=== PATIENT | female | born 1940 | race Caucasian/White ===

== ENCOUNTER 2017-02-28 18:28 | Observation (INO) | payer MEDICARE ==
--- NOTE | ~2017-02-28 | HP ---
History And Physical [place] [id number] [facility] [place]. [address] NAME: MEERA OLSON : 38 STATUS : ADM Ilda PAT#: [id number] AGE: 76 ADM/REG DATE : 02/28/17 MR#: [id number] REPORT SERV DATE: 02/28/17 DICTATED BY: NAIN OROSCO DATE: 02/28/17 REPORT STATUS : Draft TRANSCRIBED BY: MODL DATE: 02/28/17 DATE OF ADMISSION: 02/28/2017 CHIEF COMPLAINT: Shortness of breath, cough, and syncopal episode. HISTORY OF PRESENT ILLNESS: The patient is a 76-year-old female. She has a past medical history significant for pacemaker placement, atrial fib, and hypertension. Previous review of medical records also notes a history of congestive heart failure, nonischemic, and possible COPD. The patient presents with a syncopal episode earlier today. She recalls taking her developmental delay child to dance class. She states she was in the car while her daughter was at the dance class. She does not recall any prodrome. States that she woke up 15-20 minutes later, was concerned that she had a syncopal episode and asked the supervisor of guidance and testing to call her an ambulance. She has had no further symptoms since presenting here. She states that she has had previous hospitalizations for syncopal episodes, although I do not note them in the history that I have access to deny it. She does not describe a specific reason for previous syncopal episodes. This episode was not precipitated by chest pains, palpitations, feeling of lightheadedness or any warning that she was going to pass out. She estimates she was out 15-20 minutes and was fully responsive when she woke back up, without other symptoms. She is also complaining of a cough that she has had for the past several weeks. She states she saw her primary care physician, was started on an antibiotic yesterday. Her primary care physician is Dr. Pavon, and her invoice machine operator is Dr. Jacobs. PAST MEDICAL HISTORY: As covered above. PAST SURGICAL HISTORY: She reports none other than pacemaker placement. CURRENT MEDICATIONS: Coreg 12.5 b.i.d., Keflex 500 t.i.d., digoxin 0.125, Lasix 40, Neurontin 300 b.i.d., levothyroxine 75, Prinivil 5, Mevacor 40, potassium 10 and warfarin. ALLERGIES: DEMEROL, PENICILLIN, AND SULFA. FAMILY HISTORY: She reports both parents from cardiovascular disease. SOCIAL HISTORY: Nondrinker, nonsmoker. REVIEW OF SYSTEMS: She is positive for cough. Negative for chest pain or palpitations. Positive for syncope. No GI/ or other neuromusculoskeletal complaints. PHYSICAL EXAMINATION: VITAL SIGNS: BP 124/55, temp 97.8, pulse 62, respirations 18, sat 97%. GENERAL: She is awake, alert, and appropriate. HEENT: Normocephalic, atraumatic. Sclerae nonicteric. NECK: Supple. HEART: Regular rate and rhythm. History And Physical [address] [address] NAME: MEERA OLSON : 39 STATUS : ADM Ilda PAT#: [id number] AGE: 76 ADM/REG DATE : 02/28/17 MR#: [id number] REPORT SERV DATE: 02/28/17 DICTATED BY: NAIN OROSCO DATE: 02/28/17 REPORT STATUS : Draft TRANSCRIBED BY: SOTO DATE: 02/28/17 LUNGS: Show coarse breath sounds throughout. Some mild wheezing. ABDOMEN: Nontender, nondistended. EXTREMITIES: No significant clubbing, cyanosis, or edema. NEUROLOGIC: Exam is grossly nonfocal. LABORATORY DATA: Sodium 137, potassium 3.8, chloride 97, CO2 of 30, BUN and creatinine are 10 and 1.01, glucose 137, BNP 98.5, lactate 1.5. White count of 10.3, H and H 13.8 and 39.6, platelets 317. Flu was negative. Urinalysis is pending. Blood and sputum cultures are pending. Chest x-ray is pending, although no acute infiltrate to my interpretation. EKG shows a paced rhythm. ABG: PH 7.42, CO2 of 39, O2 is 62, bicarb 28, sat 21% FiO2. ASSESSMENT: 1. Syncopal episode. 2. Bronchitis. 3. Incomplete medical history. PLAN: The patient has been admitted. Cardiac enzymes, INR, serial troponins, cardiac monitoring. Treatment of her URI symptoms. Further evaluation pending. AMARI/SOTO Nain Orosco M.D. / [id number] CC: William Gonzalez Jr, MD Richard Forrest Sowell, M.D.
--- NOTE | ~2017-02-28 | DS ---
Discharge Summary [facility] [address] [place]. [address] NAME: MEERA OLSON : 38 STATUS : DIS Ilda PAT#: [id number] AGE: 76 ADM/REG DATE : 02/28/17 MR#: [id number] REPORT SERV DATE: 03/02/17 DICTATED BY: JR. JACOB WILLIAM JOHN DATE: 03/01/17 REPORT STATUS : Draft TRANSCRIBED BY: SOTO DATE: 03/01/17 ADMISSION DATE: 02/28/2017 DISCHARGE DATE: 03/01/2017 DISCHARGE DIAGNOSES: Include: 1. Possible syncope. 2. Hypothyroidism with over replacement. 3. Bronchitis. 4. Atrial fibrillation with permanent pacemaker in place. 5. Hypertension. 6. Dilated cardiomyopathy with ejection fraction of 35%. 7. Diabetes mellitus type 2 with neuropathy. 8. Coagulopathy. OPERATIONS, PROCEDURES, AND TREATMENTS: Include: 1. Chest x-ray done 02/28/2017, which showed pacemaker and AICD in place. 2. Echocardiogram, which showed ejection fraction of 35% to 40% with dilated cardiomyopathy with global hypocontractility, normal right ventricular chamber size and systolic function. No significant valvular regurgitation. There is dilated left atrium. 3. Carotid flow study. Final results are pending at the time of this dictation. 4. Orthostatic vital signs with supine blood pressure 120/57, heart rate 66, sitting blood pressure 126/77, heart rate 70, standing blood pressure 102/57, and heart rate 77. DISCHARGE MEDICATIONS: 1. Coreg 12.5 twice a day. 2. Digoxin 0.125 daily. 3. Lasix 40 mg daily, holding for one day. 4. Neurontin 900 mg twice a day. 5. Synthroid 50 mcg orally daily. 6. Lisinopril 5 mg orally daily. 7. Lovastatin 40 mg orally daily. 8. Potassium 10 mEq orally daily. 9. Coumadin on hold until seen by Dr. Jacobs. 10.Keflex 500 mg orally three times a day for seven days. HOSPITAL COURSE: The patient is a 76-year-old female with a disabled daughter whom she cares for. The patient took her daughter to dance class and apparently was sitting in the car and believes she had a syncopal episode. She awakened after an undetermined amount of time and asked the assistant boys track coach at the dance class to call EMS. She had no chest pain, palpitations, lightheadedness, shaking, loss of bowel or bladder control, etc. When asked if she is sure she did not just fall asleep, she just says she is sure. Initial exam showed a temperature of 97.8, blood pressure 124/55, heart rate 62, and respiratory rate of 18. Exam was otherwise unremarkable. Laboratory was unremarkable. The patient was admitted to the Clinical Decision Unit for observation. The patient had Discharge Summary [address] [address] NAME: MEERA OLSON : 38 STATUS : DIS Ilda PAT#: [id number] AGE: 76 ADM/REG DATE : 02/28/17 MR#: [id number] REPORT SERV DATE: 03/02/17 DICTATED BY: JR. JACOB WILLIAM JOHN DATE: 03/01/17 REPORT STATUS : Draft TRANSCRIBED BY: SOTO DATE: 03/01/17 plan for caring for her disabled daughter, desperately desired discharge home. We did do orthostatics which showed borderline orthostatic blood pressure. We discussed holding her Lasix for one day and to rest for a few minutes between position changes. The patient had an echocardiogram which is detailed above. She also had a carotid flow study, which is pending at this time. The patient's pacemaker was not yet interrogated, however, she strongly desired discharge home. We agreed that we would discharge her if she understood the risks, and she already has followup appointment with Dr. Jacobs on Monday03/06/2017, at which time, she can get her pacemaker interrogated. Regarding the patient's hypothyroidism, her TSH was depressed and free T4 was elevated indicating over replacement of her Synthroid. Her dose of Synthroid was reduced to 50 mcg orally daily. She should have a TSH redrawn in early March. Regarding the patient's coagulopathy, her INR was 4 at discharge. We will continue to hold her Coumadin until she follows up with Dr. Jacobs on Monday as previously scheduled. The patient will be discharged home today 03/01/2017 and will follow up with Dr. Jacobs on Monday as scheduled and Dr. Pavon at next available time. FOLLOWUP ISSUES: 1. Needs pacemaker interrogation. 2. Follow up on carotid flow study, which was completed. However, patient desired discharge before the results were interpreted. 3. Followup TSH in early March after reduction of Synthroid from 75 to 50 mcg daily. For discharge exam and laboratory, please see daily progress note. DIET: As prior. ACTIVITY: Ad williams. This discharge took 38 minutes for patient encounter, coordination of care, and documentation. RISA/SOTO William Jacob Jr, MD / [id number] CC: William Jacob Jr, MD Richard Forrest Sowell, M.D.
[2017-02-28 17:25] LABS: BASOPHILS 0.4 %; BASOPHILS ABSOLUTE 0.04 10/3/uL (0.0-0.16); EOSINOPHILS 0.4 %; EOSINOPHILS ABSOLUTE 0.04 10/3/uL (0.0-0.53); ER CBC TAT 0 Hrs 05 Mins; HEMATOCRIT 39.6 % (36.0-48.0); HEMOGLOBIN 13.8 g/dL (12.0-16.0); IMMATURE GRANULOCYTES 0.5 %; IMMATURE GRANULOCYTES ABSOLUTE 0.05 10/3/uL (0.0-0.11); LYMPHOCYTES 16.5 %; MANUAL DIFF NO %; MEAN CORPUS HGB CONC 34.8 g/dL (32.0-36.0); MEAN CORPUSCULAR HEMOGLOB 31.4 pg (26.0-34.0); MEAN CORPUSCULAR VOLUME 90.2 fL (80-100); MEAN PLATELET VOLUME 9.8 fL (9.2-13.0); MONOCYTES 8.1 %; MONOCYTES ABSOLUTE 0.84 10/3/uL (0.21-1.20); NEUTROPHILS 74.1 %; NEUTROPHILS ABSOLUTE 7.66 10/3/uL (2.02-8.40); PLATELET COUNT 317 10/3/uL (150-400); RBC DISTRIBUTION WIDTH 12.8 % (12.0-16.0); RED CELL COUNT 4.39 10/6/uL (4.0-5.6); WHITE BLOOD CELLS 10.3 10/3/uL (4.5-10.5)
[2017-02-28 17:41] LABS: A/G RATIO 0.9 (0.7-1.9); ALBUMIN 3.2 G/DL (3.5-5.0); ALKALINE PHOSPHATASE 77 U/L (45-117); BUN (BLOOD UREA NITROGEN) 10 MG/DL (6-23); CALCIUM, SERUM 8.7 MG/DL (8.5-10.4); CHLORIDE, SERUM 97 MMOL/L (96-112); CO2 (CARBON DIOXIDE) 30 MMOL/L (24-34); CREATININE 1.01 MG/DL (0.55-1.02); GFR AFRICAN AMERICAN 62 ML/MIN (>=60); GFR NON AFRICAN AMERICAN 54 ML/MIN (>=60); GLOBULIN 3.4 G/DL (2.5-4.1); GLUCOSE, SERUM 137 MG/DL (60-99); POTASSIUM, SERUM 3.8 MMOL/L (3.5-5.3); SGOT(AST) 19 U/L (5-40); SGPT(ALT) 15 U/L (5-65); SODIUM, SERUM 137 MMOL/L (135-148); TOTAL BILIRUBIN 0.9 MG/DL (0-1.2); TOTAL PROTEIN 6.6 G/DL (6.0-8.5)
[2017-02-28 17:45] LABS: INFLUENZA A SCREEN NEGATIVE (NEGATIVE); INFLUENZA B SCREEN NEGATIVE (NEGATIVE)
[~2017-02-28 18:28] MED LIST: ACCU20 PO; C1 PO; C2 PO; CARDCD180 PO; CORDARONE PO; COREG12 PO; COREG25 PO; COREG3 PO; COUMADIN3 MG PO; COUMADIN4 MG PO; COUMADIN6 MG PO; CRESTOR5 MG PO; GLUCPH PO; K500 PO; KDUR10 PO; KDUR20 PO; L40 PO; LAN125 PO; LAN25 PO; LEVOTHYROXIN75 MCG PO; LEVOTHYROXIN88 MCG PO; MEVACOR40 MG PO; MULTIPLE VIT PO; MULTIVITAMI1 PO; NEUR300 PO; NORV5 PO; OS500+D PO; PRIN2.5 PO; PRIN5 PO; PROTONIX PO; SPIRO25 PO; SYN075 PO; SYN88 PO
[2017-02-28 18:45] LABS: ASCORBIC ACID (UR NOT ORDER) NEG (NEG); BILIRUBIN, URINE NEGATIVE (NEG); ER URINALYSIS TAT 0 Hrs 22 Mins; KETONE, URINE NEGATIVE (NEG); LEUKOCYTE ESTERASE(NOT OR MOD (NEG); WBC (NOT ORDERED) (RFLEX) 10 (0-5)
[2017-02-28 18:47] LABS: NITRITE (URINE) NEG (NEG)
[2017-02-28 22:03] LABS: INTERNATIONAL NORMAL RATI 4.3 UNITS (-); PROTIME (NOT ORD) 40.8 SEC (12.0-14.5)
[2017-02-28 22:42] LABS: DIGOXIN 1.1 NG/ML (0.8-2.0); TROPONIN I <0.02 NG/ML (<0.05)
[2017-02-28 23:10] LABS: PROCALCITONIN <0.05 ng/mL (<0.5)
[2017-03-01 04:25] LABS: FREE T4 1.99 NG/DL (0.76-1.46); TROPONIN I <0.02 NG/ML (<0.05)
[2017-03-01 05:19] LABS: PARTIAL THROMBO TIME 72.8 SEC (22.5-37.2); PROTIME (NOT ORD) 38.8 SEC (12.0-14.5)
[2017-03-01 07:27] LABS: BUN (BLOOD UREA NITROGEN) 10 MG/DL (6-23); CALCIUM, SERUM 8.3 MG/DL (8.5-10.4); CHLORIDE, SERUM 99 MMOL/L (96-112); CO2 (CARBON DIOXIDE) 25 MMOL/L (24-34); CREATININE 1.01 MG/DL (0.55-1.02); GFR AFRICAN AMERICAN 62 ML/MIN (>=60); GFR NON AFRICAN AMERICAN 54 ML/MIN (>=60); GLUCOSE, SERUM 163 MG/DL (60-99); POTASSIUM, SERUM 3.9 MMOL/L (3.5-5.3); SODIUM, SERUM 137 MMOL/L (135-148)
[2017-03-01 10:18] LABS: TROPONIN I <0.02 NG/ML (<0.05)
[2017-03-01] MEDS ORDERED: SYN.05 PO (14:05)
== END 2017-03-01 15:15 | disposition home or self-care (01) ==
LOC: ER 18:28 → CDU1 18:31 → CDU2 19:33
PROVIDERS: Internal Medicine; Nurse Practitioner Family
DX: R55 Syncope and collapse (principal); J40 Bronchitis, not specified as acute or chronic; E11.40 Type 2 diabetes mellitus with diabetic neuropathy, unspecified; D68.9 Coagulation defect, unspecified; I48.91 Unspecified atrial fibrillation; I11.0 Hypertensive heart disease with heart failure; I50.9 Heart failure, unspecified; M19.90 Unspecified osteoarthritis, unspecified site; F41.9 Anxiety disorder, unspecified; F32.9 Major depressive disorder, single episode, unspecified; Z79.899 Other long term (current) drug therapy; Z88.0 Allergy status to penicillin; Z88.2 Allergy status to sulfonamides; Z88.8 Allergy status to other drugs, medicaments and biological substances; Z82.49 Family history of ischemic heart disease and other diseases of the circulatory system; Z79.01 Long term (current) use of anticoagulants; Z98.51 Tubal ligation status; Z98.41 Cataract extraction status, right eye; Z98.42 Cataract extraction status, left eye; Z98.890 Other specified postprocedural states
CPT/HCPCS: 36600; 71010; 80048; 80053; 80162; 81001; 82962; 83036; 83605; 83735; 83880; 84145; 84439; 84443; 84484; 85025; 85610; 85730; 87040; 87070; 87077; 87086; 87186; 87205; 87804; 93005; 93880; 94640; 96365; 96374; 96375; 96376; 99285; A9270-GY; C8929; G0378; J1956; J2930; Q9957

== ENCOUNTER 2017-03-24 00:18 | Inpatient (IN) | payer MEDICARE ==
--- NOTE | ~2017-03-24 | HP ---
History And Physical [address] [place]. [address] NAME: MEERA OLSON : 38 STATUS : ADM Ilda PAT#: [id number] AGE: 76 ADM/REG DATE : 03/24/17 MR#: [id number] REPORT SERV DATE: 03/24/17 DICTATED BY: MARA MAYS DATE: 03/24/17 REPORT STATUS : Draft TRANSCRIBED BY: MODL DATE: 03/24/17 DATE OF ADMISSION: 03/24/2017 CHIEF COMPLAINT: A 76-year-old female presenting with weakness, syncope. HISTORY OF PRESENTING ILLNESS: The patient's history was obtained through careful interview with the patient, coupled with review of [facility] and [facility] medical records. The patient had just been evaluated for a syncopal episode in early February 2017. She had a negative carotid ultrasound, a negative echocardiogram, and no clear cause of syncope was found at that time apparently. When she returned home earlier this month, she actually felt well for several days, but states that over about the last 10 days, she has had progressive loss of energy, increasing fatigue, and describes being "weaker and weaker" every day. She got to the point where she could not even drive her car. She describes mild orthostatic symptoms. On the night leading up to admission, she was lying in her bed and felt that she could not remain conscious and actually passed out for a period of time. She was uncertain how long she was passed out for. In the last month alone, she has lost about 8 pounds. No headache, no back pain, no chest pain, no abdominal pain, no shortness of breath. She has had a very poor appetite. No nausea or vomiting. REVIEW OF SYSTEMS: Otherwise, a 14-point review of systems was obtained and was negative. PAST MEDICAL HISTORY: 1. Atrial fibrillation. 2. Hypothyroidism. 3. Hypertension. 4. Diabetes with neuropathy. 5. Dilated cardiomyopathy, ejection fraction 35%, negative catheterization of the heart in 2011. 6. Obstructive sleep apnea, but no longer on CPAP. 7. Dyslipidemia. 8. Cholelithiasis. PAST SURGICAL HISTORY: 1. Pacer/AICD placement. 2. Lumbar spine surgery, L3 through S1. 3. Tubal ligation. History And Physical [address] [address] NAME: MEERA OLSON : 39 STATUS : ADM Ilda PAT#: [id number] AGE: 76 ADM/REG DATE : 03/24/17 MR#: [id number] REPORT SERV DATE: 03/24/17 DICTATED BY: MARA AMYS DATE: 03/24/17 REPORT STATUS : Draft TRANSCRIBED BY: SOTO DATE: 03/24/17 4. Wrist surgery. ALLERGIES: PENICILLIN, DEMEROL, AND SULFA. SOCIAL HISTORY: No tobacco abuse. No alcohol abuse. She is a retired nurse. She lives in [place], [place], is a . She still cares for her grown daughter with Down syndrome. FAMILY HISTORY: Mother and father with heart disease. CURRENT MEDICATIONS: Include Coreg 12.5 mg p.o. b.i.d., digoxin 0.125 mg p.o. daily, Lasix 20 mg p.o. daily, Neurontin 900 mg p.o. b.i.d., Synthroid 50 mcg p.o. daily, lisinopril 5 mg p.o. daily, lovastatin 40 mg p.o. daily, potassium 10 mEq p.o. daily, and Coumadin, but she had discontinued this medication since about 03/03/2017 ? PHYSICAL EXAMINATION: VITAL SIGNS: Temperature 98.0, pulse 60, blood pressure 124/61, respiratory rate 18, O2 sat 96% on room air. GENERAL: Pleasant, cooperative female. She is not in any particular distress, just appears very fatigued. HEENT: Pupils equal, round, and reactive to light. No conjunctival pallor. No scleral icterus. Nares are patent. Oropharynx is clear of obstruction. Moist mucous membranes. NECK: Trachea midline. No thyromegaly. LYMPH: No cervical lymphadenopathy. No supraclavicular lymphadenopathy. RESPIRATORY: Clear to auscultation at bases. No wheezes, rales, or rhonchi. Normal respiratory effort. CARDIOVASCULAR: When the patient stands up from a seated position, her pulse remained stable at 61, but with orthostatics her blood pressure does drop from 124/61 to 100/74, otherwise regular rate and rhythm. Currently, no murmurs, rubs, or gallops. No current extremity edema is appreciated. ABDOMEN: Soft, nontender, nondistended. Normal bowel sounds auscultated throughout. No hepatosplenomegaly. DERMATOLOGICAL: Warm and dry extremities. No pallor. No cyanosis. PSYCHIATRIC: Normal affect. Good mood. Alert and oriented x3. LABORATORY DATA: White blood cell count 6.5, hemoglobin 13, hematocrit 38, platelets 218. Sodium 137, potassium 3.6, chloride 94, bicarb 32, BUN 6, creatinine 0.9, glucose 117, troponin 0.05, INR 1.12. STUDIES: 1. A review of carotid ultrasound on 03/01/2017, showed "negative" disease. 2. A review of echocardiogram from 03/01/2017, showed "negative" disease. 3. Interrogation of the pacemaker at outlying facility was reported as normal. ASSESSMENT AND PLAN: 1. Syncope with mild orthostasis weakness. I suspect that this is a medication effect. We will try to decrease Coreg dose, discontinue Lasix altogether, check a digoxin level History And Physical [address] [address] NAME: MEERA OLSON : 39 STATUS : ADM Ilda PAT#: [id number] AGE: 76 ADM/REG DATE : 03/24/17 MR#: [id number] REPORT SERV DATE: 03/24/17 DICTATED BY: MARA MAYS DATE: 03/24/17 REPORT STATUS : Draft TRANSCRIBED BY: SOTO DATE: 03/24/17 to rule out toxicity. Check thyroid level, decrease Neurontin dose slightly, and hold statin for now and checking a fasting lipid panel. We will continue the patient on telemetry. 2. Atrial fibrillation. Check digoxin level. Check telemetry. Resume Coumadin, bridge with Lovenox. 3. Chronic nonischemic dilated cardiomyopathy, seems well controlled at this time. I will be holding Lasix because of the patient's presentation. Noted ejection fraction to 35%, February 2017. We are decreasing Coreg dose in light of the patient's symptoms and continue LAWRENCE inhibitor. ANDREAL/MODChavo Mara Masy M.D. / [id number] CC: Dana Garduno M.D. Helio Jacobs M.D. Jared Pavon M.D.
--- NOTE | ~2017-03-24 | PUL ---
[place] [address] [place]. [address] NAME: MEERA OLSON : 39 STATUS : ADM Ilda PAT#: [id number] AGE: 76 ADM/REG DATE : 03/24/17 MR#: [id number] REPORT SERV DATE: 03/25/17 DICTATED BY: EMERALD BRADFORD DATE: 03/25/17 REPORT STATUS : Draft TRANSCRIBED BY: MODL DATE: 03/25/17 PULMONARY FUNCTION TEST OVERNIGHT PULSE OXIMETRY TEST: Overnight pulse oximetry done on room air. DATA: Total recording time 6 hours 28 minutes, mean pulse is 70, mean oxygen saturation 95.1%. Time with an oxygen saturation less than 88% is 4 seconds. INTERPRETATION: This is a normal overnight pulse oximetry with mild desaturations on the SpO2 curve. HFQ/MODChavo Emerald Bradford MD / [id number] CC: Dana Garduno M.D. UNKNOWN
--- NOTE | ~2017-03-24 | DS ---
Discharge Summary [facility] [address] [place]. [address] NAME: MEERA OLSON : 38 STATUS : DIS IN PAT#: [id number] AGE: 76 ADM/REG DATE : 03/25/17 MR#: [id number] REPORT SERV DATE: 03/28/17 DICTATED BY: ELISE NELSON DATE: 03/28/17 REPORT STATUS : Draft TRANSCRIBED BY: MODL DATE: 03/28/17 ADMISSION DATE: 03/25/2017 DISCHARGE DATE: 03/28/2017 The patient is going to be discharged to rehab. DIAGNOSES ON ADMISSION: 1. Syncope with mild orthostasis and weakness, likely effect of the medications, Coreg and Lasix. 2. Digoxin toxicity with abnormal digoxin level. 3. Decrease Neurontin, as also causing hypotension. 4. History of atrial fibrillation, currently in paced rhythm. History of pacemaker placement. 5. Chronic nonischemic dilated cardiomyopathy with ejection fraction of 35% in February 2017. DIAGNOSES ON DISCHARGE: 1. Syncope secondary to weakness and orthostatic hypotension. Currently blood pressure medications decreased in the dosages as well as Lasix discontinued per recommendation of automotive tire technician. 2. Digoxin toxicity. Digoxin was discontinued by Dr. Brooks. 3. History of dilated cardiomyopathy with ejection fraction 35%, compensated. 4. History of asymptomatic episodes of nonsustained ventricular tachycardia, currently on a beta-heriberto. Dr. Brooks okay with Coreg dose of 6.25 p.o. b.i.d. and okay with the discharge. 5. Moderate malnourishment. 6. Coumadin anticoagulation to be continued at rehab, [facility]. Overall, the patient is stable. She has severe weakness and going to go to rehab to get stronger. Digoxin toxicity. Discontinued digoxin per recommendation of automotive tire technician. For the details of H and P, see history of present illness dictated by Dr. Moreno on 04/23/2017. The patient was seen afterwards by my colleague, Dr. Garduno until 03/28/2017. Today, I saw her on the day of discharge, 03/28/2017. I also consulted automotive tire technician Dr. Brooks since the patient's digoxin level was elevated on admission and the digoxin was on hold. Dr. Brooks recommended to discontinue digoxin since it could cause potential toxicity and he was okay for the patient to decrease the dose of Coreg, as well as we held her Lasix because she was mildly orthostatic on admission and blood pressure was in the low range. For example, on 03/24/2017, on the day of admission, her blood pressure lying was 122/59, sitting was 106/93, and standing was 100/74. Also Coumadin anticoagulation was restarted and the need to continue at the rehab, as well as they will do PT and INR daily. Dr. Brooks recommended the patient to follow up with the primary care physician after discharge from rehab and follow up with Dr. Jacobs, the patient's automotive tire technician in two to three weeks. Discharge Summary [place] [id number] [facility] [place]. [address] NAME: MEERA OLSON : 38 STATUS : DIS IN PAT#: [id number] AGE: 76 ADM/REG DATE : 03/25/17 MR#: [id number] REPORT SERV DATE: 03/28/17 DICTATED BY: ELISE NELSON DATE: 03/28/17 REPORT STATUS : Draft TRANSCRIBED BY: SOTO DATE: 03/28/17 DISCHARGE MEDICATIONS: 1. Coreg 6.25 p.o. b.i.d. 2. The patient to stop digoxin. 3. Lovenox 40 mg subcu daily until INR is 2. Stop Lovenox when INR is equal 2 or above. 4. Neurontin, dose decreased to 600 p.o. b.i.d. 5. Levothyroxine 50 mcg daily. 6. Lisinopril 5 mg daily. 7. The patient to stop Lasix. 8. Lovastatin 40 mg a day. 9. Coumadin anticoagulation 3 mg one dose to be given today and then 2 mg p.o. daily with PT/INR needs to be done daily and adjust Coumadin accordingly. Goal INR from 2 to 3. Prophylactic Lovenox will be stopped when INR will be 2 and above. I spent 45 minutes on discharge. Everything was discussed with the patient with Dr. Brooks, automotive tire technician. The patient was discharged to rehab per recommendation of Dr. Brooks. The patient was discharged in stable condition. MG/MODL Elise Nelson M.D. / [id number] CC: Mitch Rendon M.D. Mark Thel, M.D.
--- NOTE | ~2017-03-24 | CN ---
Consultation Report [facility] [address] [place]. [address] NAME: MEERA OLSON : 38 STATUS : ADM IN [facility]#: [id number] AGE: 76 ADM/REG DATE : 03/25/17 MR#: [id number] REPORT SERV DATE: 03/28/17 DICTATED BY: CYNDI BROOKS DATE: 03/28/17 REPORT STATUS : Draft TRANSCRIBED BY: SOTO DATE: 03/28/17 CARDIOLOGY CONSULTATION NOTE DATE OF CONSULTATION: 03/28/2017 REASON FOR CONSULTATION: Nonsustained ventricular tachycardia, elevated serum digoxin level, and generalized fatigue progressing over the last two to four weeks. HISTORY OF PRESENT ILLNESS: Ms Olson is a 76-year-old woman with a history of nonischemic cardiomyopathy, who is followed by Dr. Helio Jacobs. The patient has status post implantation of a [employer]OC[employer]-D device. The patient was recently admitted to [facility] on 03/14/2017. The patient is a relatively poor historian, but on further questioning reports several months of decreased p.o. intake. The patient reports that she is simply lost her appetite. The patient has had a slowly progressing weakness. She had a near syncopal event in early 02/2017. She was admitted to [facility] for this. A thorough workup was performed, which included an echocardiogram, device interrogation, and bilateral carotid duplex ultrasound. The patient's left ventricular systolic function was actually found to be improved at 35% to 40%. Her baseline ejection fraction is 20% as measured by echocardiography in 10/2015. The patient had no significant arrhythmias noted on her device interrogation. Her carotid ultrasound was normal. The patient was eventually discharged to home. Since that time, the patient has continued to have progressive generalized weakness and fatigue. The patient denies any clear exertional dyspnea. She specifically denies chest pain, palpitations, orthopnea, lower extremity edema, or paroxysmal nocturnal dyspnea. The patient self reports a 40-pound weight loss over the last 6 to 12 months. However, a review of Cardiology Clinic notes demonstrates at most a roughly 20 pound weight loss. The patient is being treated with Lasix, though this was discontinued at the time of her hospital admission. The patient reports she feels somewhat better in comparison to hospital admission, but continues to complain of generalized fatigue. The patient reports she has "no appetite." PAST MEDICAL HISTORY: 1. Nonischemic cardiomyopathy. 2. Paroxysmal atrial fibrillation. 3. Type 2 diabetes. 4. Hypertension. 5. Obstructive sleep apnea. 6. Dyslipidemia. 7. History of pericardial effusion. 8. Hypertension. PAST SURGICAL HISTORY: 1. The patient has status post implantation of a [employer]-D device. Consultation Report [facility] [address] [place]. [address] NAME: MEERA OLSON : 38 STATUS : ADM IN [facility]#: [id number] AGE: 76 ADM/REG DATE : 03/25/17 MR#: [id number] REPORT SERV DATE: 03/28/17 DICTATED BY: CYNDI BROOKS DATE: 03/28/17 REPORT STATUS : Draft TRANSCRIBED BY: SOTO DATE: 03/28/17 2. Lumbosacral spinal surgery L3 through S1. 3. Bilateral tubal ligation. 4. Wrist surgery, not otherwise specified. FAMILY HISTORY: Both the patient's mother and father suffered from heart disease, not otherwise specified. There is no family history of early coronary heart disease or sudden cardiac . SOCIAL HISTORY: The patient denies any previous history of tobacco, alcohol, or drug use. She is a retired nurse, who lives in [place], [place]. She is a . She has a grown daughter with Down syndrome. ALLERGIES: THE PATIENT HAS DOCUMENTED ALLERGIES TO PENICILLIN, DEMEROL, AND SULFA DRUGS. PENICILLINS CAUSE A RASH, AND DEMEROL AND SULFA DRUGS CAUSE NAUSEA. HOME MEDICATIONS: 1. Carvedilol 12.5 mg p.o. twice daily. 2. Digoxin 0.125 mg p.o. q.p.m. 3. Lasix 20 mg p.o. q.a.m. 4. Gabapentin 900 mg p.o. twice daily. 5. Levothyroxine 50 mcg p.o. q.a.m. 6. Lisinopril 5 mg p.o. q.a.m. 7. Lovastatin 40 mg p.o. at bedtime. 8. Potassium chloride 10 mEq p.o. daily. 9. Coumadin - home dosing unknown. REVIEW OF SYSTEMS: A complete 12-system review was performed. This is noncontributory except for the pertinent positives and negatives noted in the history of present illness above. PHYSICAL EXAMINATION: VITAL SIGNS: Temperature is 98.1 degrees Fahrenheit, blood pressure is 123/58 mmHg, heart rate is 66 beats per minute and regular, respirations 16, oxygen saturation is 95% on room air. CONSTITUTIONAL: The patient is a chronically ill-appearing elderly white woman, who appears mildly disheveled with long fingernails. She is in no acute distress. EYES: PERRL, EOMI, clear conjunctiva. HEAD/MNT: NCAT with moist mucous membranes and grossly normal hard and soft palate. NECK: Supple with no obvious thyromegaly or lymphadenopathy. CARDIOVASCULAR: There is a regular rhythm with a normal S1 and a physiologically split second heart sound. No significant murmurs, rubs, or gallops are noted. The jugular venous pressure is normal. There are no carotid artery bruits noted. PULMONARY: Clear to auscultation bilaterally with no wheezing, rales, rhonchi, or dullness to percussion. ABDOMINAL: Soft, non-tender, non-distended with no hepatosplenomegaly noted. Consultation Report [address] [place]. [address] NAME: MEERA OLSON : 38 STATUS : ADM IN [facility]#: [id number] AGE: 76 ADM/REG DATE : 03/25/17 MR#: [id number] REPORT SERV DATE: 03/28/17 DICTATED BY: CYNDI BROOKS DATE: 03/28/17 REPORT STATUS : Draft TRANSCRIBED BY: SOTO DATE: 03/28/17 EXTREMITIES: There is no significant clubbing, cyanosis, or edema noted at this time. MUSCULOSKELETAL: Grossly normal strength and range of motion in all extremities. INTEGUMENTARY: Skin appears intact with no bruises, wounds or active lesions noted. NEURO/PSYC: Alert and oriented x3, with no dysarthria, facial droop or lateralizing weakness noted. STUDIES: 12-lead EKG: The 12-lead EKG dated 03/24/2017 shows 100% ventricular pacing in a biventricular pattern. The underlying rhythm appears to be atrial fibrillation. Telemetry data: The patient's athletic monitor demonstrates occasional episodes of nonsustained ventricular tachycardia, the longest of which is 13 beats in length lasting approximately 5 seconds. This occurred today 03/28/2017 at 0700 hours. The patient apparently had no symptoms associated with this. There are occasional runs of atrial fibrillation alternating with sinus rhythm and sequential AV pacing. No other significant dysrhythmias are noted. Laboratory: The patient's digoxin level at the time of admission is 3.2. Thyroid function studies are within normal limits. The patient's basic metabolic profile from this morning shows a sodium of 140, potassium 4.5, chloride is 103, CO2 is 33, BUN 5, creatinine is 0.71, glucose is 88. Magnesium 2.3. Digoxin level is 1.1 today. Of note, a comprehensive metabolic profile performed at the time of the patient's admission shows a significantly decreased serum albumin 2.8 with a total protein of 5.9. Liver function studies are otherwise unremarkable. Transthoracic echocardiogram: The patient's transthoracic echocardiogram performed, 03/01/2017 shows moderately depressed left ventricular systolic function with an ejection fraction of 35% to 40%. There is dilation of the left ventricle with global hypokinesis. Right ventricular systolic function is normal. There is left atrial dilation. There is no significant valvular heart disease reported. ASSESSMENT AND PLAN: 1. Generalized fatigue: The patient's symptoms are not suggestive of a cardiac etiology. The patient had a normal B-type natriuretic peptide at the time of hospital admission. Her Lasix has been discontinued, and the patient does appear euvolemic at this time. It is possible that the patient's symptoms have been precipitated by digoxin toxicity, though other causes will need to be excluded. At this time, I feel the remainder of the patient's workup could be pursued on an outpatient basis. She appears euvolemic, and is having no clinically significant dysrhythmias. 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 She has received no therapies for this. I would recommend that the patient's digoxin be discontinued. Should the patient fail to have greater than or equal to 90% of biventricular pacing, consider increasing carvedilol. The patient will have followup with Dr. Jacobs in two weeks. 2. Hypertension - controlled: Continue current regimen. 3. Malnutrition: The patient does have an at least 20 pound weight loss over the last Consultation Report [address] [place]. [address] NAME: MEERA OLSON : 38 STATUS : ADM IN PAT#: [id number] AGE: 76 ADM/REG DATE : 03/25/17 MR#: [id number] REPORT SERV DATE: 03/28/17 DICTATED BY: CYNDI BROOKS DATE: 03/28/17 REPORT STATUS : Draft TRANSCRIBED BY: SOTO DATE: 03/28/17 several months. Consider a workup for occult malignancy. The patient may have followup with Dr. Pavon, her primary care provider as soon as possible. Thank you for allowing me to participate in the care of Ms Olson. Again, I feel the patient may be safely discharged to a rehab facility at this time. She will have followup with Dr. Pavon as soon as possible and preferably within one week to pursue workup for failure to thrive, malnutrition, and ongoing fatigue and weight loss. The patient will have followup with Dr. Jacobs in two to four weeks. [facility]/SOTO Cyndi Brooks MD / [id number] CC: Lisha Quintanilla M.D.
[~2017-03-24 00:18] MED LIST changes: +SYN.05 PO
[2017-03-24] MEDS ORDERED: COREG12 PO (02:36)
[2017-03-24] MEDS ORDERED: L20 PO (02:37)
[2017-03-24] MEDS ORDERED: NEUR300 PO (02:37)
[2017-03-24] MEDS ORDERED: LAN125 PO (02:37)
[2017-03-24] MEDS ORDERED: SYN.05 PO (02:39)
[2017-03-24] MEDS ORDERED: PRIN5 PO (02:39)
[2017-03-24] MEDS ORDERED: MEVACOR40 MG PO (02:40)
[2017-03-24] MEDS ORDERED: KDUR10 PO (02:41)
[2017-03-24] MEDS ORDERED: WARFARIN (02:42)
[2017-03-24 05:35] LABS: A/G RATIO 0.9 (0.7-1.9); ALBUMIN 2.8 G/DL (3.5-5.0); ALKALINE PHOSPHATASE 71 U/L (45-117); BUN (BLOOD UREA NITROGEN) 7 MG/DL (6-23); CALCIUM, SERUM 8.1 MG/DL (8.5-10.4); CHLORIDE, SERUM 98 MMOL/L (96-112); CREATININE 1.02 MG/DL (0.55-1.02); GFR AFRICAN AMERICAN 61 ML/MIN (>=60); GFR NON AFRICAN AMERICAN 53 ML/MIN (>=60); GLOBULIN 3.1 G/DL (2.5-4.1); POTASSIUM, SERUM 3.9 MMOL/L (3.5-5.3); SGOT(AST) 16 U/L (5-40); SGPT(ALT) 14 U/L (5-65); SODIUM, SERUM 137 MMOL/L (135-148); TOTAL BILIRUBIN 0.7 MG/DL (0-1.2); TOTAL PROTEIN 5.9 G/DL (6.0-8.5)
[2017-03-24 05:39] LABS: BASOPHILS 0.9 %; BASOPHILS ABSOLUTE 0.06 10/3/uL (0.0-0.16); CO2 (CARBON DIOXIDE) 32 MMOL/L (24-34); EOSINOPHILS 2.2 %; EOSINOPHILS ABSOLUTE 0.14 10/3/uL (0.0-0.53); GLUCOSE, SERUM 115 MG/DL (60-99); HEMATOCRIT 36.9 % (36.0-48.0); HEMOGLOBIN 12.7 g/dL (12.0-16.0); IMMATURE GRANULOCYTES 0.3 %; IMMATURE GRANULOCYTES ABSOLUTE 0.02 10/3/uL (0.0-0.11); LYMPHOCYTES 30.9 %; MEAN CORPUS HGB CONC 34.4 g/dL (32.0-36.0); MEAN CORPUSCULAR HEMOGLOB 30.8 pg (26.0-34.0); MEAN CORPUSCULAR VOLUME 89.6 fL (80-100); MEAN PLATELET VOLUME 9.8 fL (9.2-13.0); MONOCYTES 13.8 %; MONOCYTES ABSOLUTE 0.89 10/3/uL (0.21-1.20); NEUTROPHILS 51.9 %; NEUTROPHILS ABSOLUTE 3.36 10/3/uL (2.02-8.40); RED CELL COUNT 4.12 10/6/uL (4.0-5.6); TROPONIN I 0.07 NG/ML (<0.05); WHITE BLOOD CELLS 6.5 10/3/uL (4.5-10.5)
[2017-03-24 05:40] LABS: PLATELET COUNT 213 10/3/uL (150-400)
[2017-03-24 05:41] LABS: MANUAL DIFF NO %
[2017-03-24 06:28] LABS: HDL CHOLESTEROL 61 MG/DL (> 49)
[2017-03-24 06:29] LABS: CHOL/HDL RATIO(NOT ORDER) 2.2 (0-5); CHOLESTEROL 137 MG/DL (< 200); LDL CHOLESTEROL 35 MG/DL (< 130); NON-HDL CHOLESTEROL 76 MG/DL (< 160); TRIGLYCERIDE 206 MG/DL (< 150)
[2017-03-24 06:30] LABS: DIGOXIN 3.7 NG/ML (0.8-2.0)
[2017-03-24 06:42] LABS: INTERNATIONAL NORMAL RATI 1.3 UNITS (-)
[2017-03-24 07:03] LABS: PROTIME (NOT ORD) 15.9 SEC (12.0-14.5)
[2017-03-24 12:02] LABS: BASOPHILS 0.9 %; BASOPHILS ABSOLUTE 0.05 10/3/uL (0.0-0.16); EOSINOPHILS 2.3 %; EOSINOPHILS ABSOLUTE 0.12 10/3/uL (0.0-0.53); HEMATOCRIT 36.3 % (36.0-48.0); HEMOGLOBIN 12.3 g/dL (12.0-16.0); IMMATURE GRANULOCYTES 0.4 %; IMMATURE GRANULOCYTES ABSOLUTE 0.02 10/3/uL (0.0-0.11); LYMPHOCYTES ABSOLUTE 1.32 10/3/uL (0.67-4.30); MEAN CORPUS HGB CONC 33.9 g/dL (32.0-36.0); MEAN CORPUSCULAR HEMOGLOB 30.6 pg (26.0-34.0); MEAN CORPUSCULAR VOLUME 90.3 fL (80-100); MEAN PLATELET VOLUME 9.6 fL (9.2-13.0); MONOCYTES ABSOLUTE 0.74 10/3/uL (0.21-1.20); NEUTROPHILS 57.4 %; NEUTROPHILS ABSOLUTE 3.04 10/3/uL (2.02-8.40); PLATELET COUNT 207 10/3/uL (150-400); RED CELL COUNT 4.02 10/6/uL (4.0-5.6); WHITE BLOOD CELLS 5.3 10/3/uL (4.5-10.5)
[2017-03-24 12:03] LABS: MANUAL DIFF NO %
[2017-03-24 12:10] LABS: INTERNATIONAL NORMAL RATI 1.3 UNITS (-); PARTIAL THROMBO TIME 36.2 SEC (22.5-37.2)
[2017-03-24 12:32] LABS: A/G RATIO 0.9 (0.7-1.9); ALBUMIN 2.6 G/DL (3.5-5.0); ALKALINE PHOSPHATASE 68 U/L (45-117); BUN (BLOOD UREA NITROGEN) 8 MG/DL (6-23); CALCIUM, SERUM 8.2 MG/DL (8.5-10.4); CHLORIDE, SERUM 98 MMOL/L (96-112); CO2 (CARBON DIOXIDE) 30 MMOL/L (24-34); CREATININE 1.07 MG/DL (0.55-1.02); FREE T4 1.37 NG/DL (0.76-1.46); GFR AFRICAN AMERICAN 58 ML/MIN (>=60); GFR NON AFRICAN AMERICAN 50 ML/MIN (>=60); GLUCOSE, SERUM 132 MG/DL (60-99); POTASSIUM, SERUM 3.8 MMOL/L (3.5-5.3); SGOT(AST) 17 U/L (5-40); SGPT(ALT) 12 U/L (5-65); SODIUM, SERUM 136 MMOL/L (135-148); TOTAL BILIRUBIN 0.6 MG/DL (0-1.2); TOTAL PROTEIN 5.6 G/DL (6.0-8.5)
[2017-03-24 12:33] LABS: CK-MB 1.9 NG/ML; CPK 63 U/L (0-200); TROPONIN I 0.07 NG/ML (<0.05); ULTRASENSITIVE TSH 0.678 MCIU/ML (0.358-3.740)
[2017-03-25 05:50] LABS: INTERNATIONAL NORMAL RATI 1.3 UNITS (-); PROTIME (NOT ORD) 15.9 SEC (12.0-14.5)
[2017-03-25 06:01] LABS: BUN (BLOOD UREA NITROGEN) 7 MG/DL (6-23); CALCIUM, SERUM 8.4 MG/DL (8.5-10.4); CHLORIDE, SERUM 103 MMOL/L (96-112); CO2 (CARBON DIOXIDE) 28 MMOL/L (24-34); CREATININE 0.87 MG/DL (0.55-1.02); GFR AFRICAN AMERICAN 74 ML/MIN (>=60); GFR NON AFRICAN AMERICAN 64 ML/MIN (>=60); GLUCOSE, SERUM 109 MG/DL (60-99); POTASSIUM, SERUM 4.1 MMOL/L (3.5-5.3); PREALBUMIN 20.3 MG/DL (17.0-43.0); SODIUM, SERUM 139 MMOL/L (135-148)
[2017-03-26 07:06] LABS: INTERNATIONAL NORMAL RATI 1.2 UNITS (-)
[2017-03-26 07:19] LABS: BUN (BLOOD UREA NITROGEN) 6 MG/DL (6-23); CALCIUM, SERUM 8.1 MG/DL (8.5-10.4); CHLORIDE, SERUM 100 MMOL/L (96-112); CO2 (CARBON DIOXIDE) 31 MMOL/L (24-34); GFR AFRICAN AMERICAN 82 ML/MIN (>=60); GFR NON AFRICAN AMERICAN 71 ML/MIN (>=60); GLUCOSE, SERUM 88 MG/DL (60-99); POTASSIUM, SERUM 3.6 MMOL/L (3.5-5.3); SODIUM, SERUM 137 MMOL/L (135-148)
[2017-03-26 07:29] LABS: DIGOXIN 1.8 NG/ML (0.8-2.0)
[2017-03-27 04:36] LABS: BUN (BLOOD UREA NITROGEN) 6 MG/DL (6-23); CALCIUM, SERUM 8.8 MG/DL (8.5-10.4); CHLORIDE, SERUM 101 MMOL/L (96-112); CO2 (CARBON DIOXIDE) 32 MMOL/L (24-34); CREATININE 0.79 MG/DL (0.55-1.02); GFR AFRICAN AMERICAN 84 ML/MIN (>=60); GFR NON AFRICAN AMERICAN 72 ML/MIN (>=60); POTASSIUM, SERUM 4.2 MMOL/L (3.5-5.3); SODIUM, SERUM 139 MMOL/L (135-148)
[2017-03-27 04:38] LABS: GLUCOSE, SERUM 111 MG/DL (60-99)
[2017-03-27 05:21] LABS: INTERNATIONAL NORMAL RATI 1.3 UNITS (-); PROTIME (NOT ORD) 15.6 SEC (12.0-14.5)
[2017-03-28 06:41] LABS: INTERNATIONAL NORMAL RATI 1.2 UNITS (-); PROTIME (NOT ORD) 15.5 SEC (12.0-14.5)
[2017-03-28 09:52] LABS: BUN (BLOOD UREA NITROGEN) 5 MG/DL (6-23); CALCIUM, SERUM 8.8 MG/DL (8.5-10.4); CHLORIDE, SERUM 103 MMOL/L (96-112); CO2 (CARBON DIOXIDE) 33 MMOL/L (24-34); CREATININE 0.71 MG/DL (0.55-1.02); DIGOXIN 1.1 NG/ML (0.8-2.0); GFR AFRICAN AMERICAN 95 ML/MIN (>=60); GFR NON AFRICAN AMERICAN 82 ML/MIN (>=60); POTASSIUM, SERUM 4.5 MMOL/L (3.5-5.3); SODIUM, SERUM 140 MMOL/L (135-148)
[2017-03-28 09:53] LABS: GLUCOSE, SERUM 88 MG/DL (60-99)
== END 2017-03-28 15:32 | DRG 312 ==
LOC: 5NO 00:18
PROVIDERS: Hospitalist; Internal Medicine
DX: I95.2 Hypotension due to drugs (principal); I47.2 Ventricular tachycardia; E44.0 Moderate protein-calorie malnutrition; I48.91 Unspecified atrial fibrillation; I42.0 Dilated cardiomyopathy; T42.6X5A Adverse effect of other antiepileptic and sedative-hypnotic drugs, initial encounter; T44.7X5A Adverse effect of beta-adrenoreceptor antagonists, initial encounter; E03.9 Hypothyroidism, unspecified; T46.0X5A Adverse effect of cardiac-stimulant glycosides and drugs of similar action, initial encounter; T50.1X5A Adverse effect of loop [high-ceiling] diuretics, initial encounter; Z95.0 Presence of cardiac pacemaker; Z79.01 Long term (current) use of anticoagulants; Z68.23 Body mass index [BMI] 23.0-23.9, adult
CPT/HCPCS: 71010; 80048; 80053; 80061; 80162; 82533; 82550; 82553; 82962; 83735; 83880; 84134; 84439; 84443; 84484; 85025; 85610; 85730; 93005; 94762; 97161-GP; 97530-GP; A9270-GY; G8978-CL-GP; G8979-CK-GP